=== PATIENT | female | born 1945 | race Hispanic/Latino ===

== ENCOUNTER 2022-03-21 12:31 | Emergency (ER) | payer OTHER ==
[~2022-03-21] VITALS: Ht 149.9 cm; Wt 59.0 kg
[2022-03-21] MEDS ORDERED: ACET-2247 PO (15:42)
[2022-03-21] MEDS ORDERED: GUAI120015 PO (15:42)
[2022-03-21 15:46] VITALS: BP 142/84
== END 2022-03-21 16:01 | disposition home or self-care (01) ==
LOC: EDH 12:31
DX: U07.1 COVID-19 (principal); B34.9 Viral infection, unspecified; M19.90 Unspecified osteoarthritis, unspecified site; E11.9 Type 2 diabetes mellitus without complications; E78.00 Pure hypercholesterolemia, unspecified; I10 Essential (primary) hypertension; Z90.49 Acquired absence of other specified parts of digestive tract; Z20.822 Contact with and (suspected) exposure to COVID-19; Z79.899 Other long term (current) drug therapy
CPT/HCPCS: 99282; 87635; 87880; 87804 ×2; C9803